=== PATIENT | male | born 1970 | race Caucasian/White ===

== ENCOUNTER 2017-07-06 11:14 | Emergency (ER) | payer OTHER ==
[~2017-07-06] VITALS: Ht 170.2 cm; Wt 79.5 kg
[2017-07-06 11:23] VITALS: BP 120/76
[2017-07-06] MEDS ORDERED: DIAZEPAM 5 MG TABLET ONE (12:25)
[2017-07-06] MEDS ORDERED: KETOROLAC 30 MG/1 ML ONE (12:26)
[2017-07-06] MEDS ORDERED: DIAZEPAM 5 MG TABLET PO ONE (12:30)
[2017-07-06] MEDS ORDERED: KETOROLAC 30 MG/1 ML IM ONE (12:30)
[2017-07-06] MEDS ORDERED: PLEASE ENTER ALLERGIES MC SCH ×2 (13:00)
== END 2017-07-06 13:19 | disposition home or self-care (01) ==
LOC: ED 13:13
DX: S06.0X0A Concussion without loss of consciousness, initial encounter (principal); S16.1XXA Strain of muscle, fascia and tendon at neck level, initial encounter; V49.49XA Driver injured in collision with other motor vehicles in traffic accident, initial encounter; Y93.89 Activity, other specified; Y92.89 Other specified places as the place of occurrence of the external cause; Y99.8 Other external cause status
CPT/HCPCS: 93005; 96372; 99283; J1885

== ENCOUNTER 2017-07-15 13:49 | Emergency (ER) | payer OTHER ==
[~2017-07-15] VITALS: Ht 170.2 cm; Wt 78.7 kg
[2017-07-15] MEDS ORDERED: NAPR500T3 PO (14:11)
[2017-07-15] MEDS ORDERED: IBUPROFEN 200 MG TABLET ONE (14:43)
[2017-07-15] MEDS ORDERED: ACETAMINOPHEN 325 MG TABLET ONE (14:43)
[2017-07-15] MEDS ORDERED: IBUPROFEN 200 MG TABLET PO ONE (15:00)
[2017-07-15] MEDS ORDERED: ACETAMINOPHEN 325 MG TABLET PO ONE (15:00)
[2017-07-15 16:24] VITALS: BP 113/77
== END 2017-07-15 16:26 | disposition home or self-care (01) ==
LOC: ED 14:22
DX: S06.0X0A Concussion without loss of consciousness, initial encounter (principal); V89.2XXA Person injured in unspecified motor-vehicle accident, traffic, initial encounter; Y93.89 Activity, other specified; Y99.8 Other external cause status; Y92.488 Other paved roadways as the place of occurrence of the external cause
CPT/HCPCS: 70450; 72125; 99284